=== PATIENT | female | born 2000 | race American Indian/Alaskan Native ===

== ENCOUNTER 2020-03-08 14:05 | Emergency (ER) | payer OTHER ==
[2020-03-08 14:32] VITALS: BP 107/98
--- NOTE | 2020-03-08 14:32 | Emergency Department Report ---
ED Lower Extremity HPI - General Stated Complaint: RT ANKLE INJURY Time Seen by Provider: 03/08/20 14:27 - History of Present Illness Initial Comments: Patient is a 19-year-old female who presents emergency room with complaints of a right ankle/foot injury that occurred just prior to arrival. Patient states that she was inside the house and missed the last step and states that she rolled her ankle. She is having associated right ankle and foot pain. She has been ambulatory since the incident but states that she has pain when she ambulates. She denies any numbness or weakness. She denies ever injuring in the past. No past medical history. No allergies to medications. Last menstrual cycle 02/24/2020. - Related Data Previous Rx's Medication Instructions Recorded Last Taken Type Naproxen [EC-Naproxen] 500 mg PO BID PRN #14 tablet. 03/08/20 Unknown Rx Allergies Allergy/AdvReac Type Severity Reaction Status Date / Time No Known Allergies Allergy Unverified 03/08/20 14:32 ED Review of Systems ROS: Stated complaint: RT ANKLE INJURY Other details as noted in HPI Comment: All other systems reviewed and negative ED Past Medical Hx - Medications Home Medications: Home Medications Medication Instructions Recorded Confirmed Last Taken Type Naproxen [EC-Naproxen] 500 mg PO BID PRN #14 tablet. 03/08/20 Unknown Rx ED Physical Exam - General General appearance: alert, in no apparent distress - Head Head exam: Present: atraumatic, normocephalic - Eye Eye exam: Present: normal appearance - ENT ENT exam: Present: mucous membranes moist - Respiratory Respiratory exam: Absent: respiratory distress, accessory muscle use - Extremities Exam Extremities exam: Present: other (ttp and edema present to the right lateral malleolus, FROM of the right ankle, foot, and toes, pain with flexion and external rotation of the right ankle, neurovascularly intact) - Neurological Exam Neurological exam: Present: alert, oriented X3 - Psychiatric Psychiatric exam: Present: normal affect, normal mood - Skin Skin exam: Present: warm, dry, intact ED Course Vital Signs 03/08/20 14:28 Temperature 97.9 F Pulse Rate 107 H Respiratory 18 Rate Blood Pressure 107/98 O2 Sat by Pulse 98 Oximetry ED Lower Extremity MDM - Radiology Data Radiology results: report reviewed Ordering Physician: ALISSON ROBERTS Date of Service: 03/08/20 Procedure(s): XR ankle 3+V RT Accession Number(s): [id number] cc: ALISSON ROBERTS Fluoro Time In Minutes: XR foot 3+V RT, XR ankle 3+V RT INDICATION / CLINICAL INFORMATION: right ankle/foot pain after fall down steps. COMPARISON: None available. FINDINGS: No acute fracture or malalignment in the left foot or ankle. There is soft tissue swelling about the ankle IMPRESSION: Soft tissue swelling about the ankle. No acute osseous findings of the ankle or foot. Signer Name: Kiran Danielle MD Signed: 03/08/2020 3:11 PM Workstation Name: [id number] Transcribed By: PEMA Dictated By: KIRAN GARCÍA MD Electronically Authenticated By: KIRAN GARCÍA MD Signed Date/Time: 03/08/201510 DD/ 09 TD/TT: Ordering Physician: ALISSON ROBERTS Date of Service: 03/08/20 Procedure(s): XR foot 3+V RT Accession Number(s): [id number] cc: ALISSON ROBERTS Fluoro Time In Minutes: XR foot 3+V RT, XR ankle 3+V RT INDICATION / CLINICAL INFORMATION: right ankle/foot pain after fall down steps. COMPARISON: None available. FINDINGS: No acute fracture or malalignment in the left foot or ankle. There is soft tissue swelling about the ankle IMPRESSION: Soft tissue swelling about the ankle. No acute osseous findings of the ankle or foot. Signer Name: Kiran Danielle MD Signed: 03/08/2020 3:11 PM Workstation Name: [id number] Transcribed By: PEMA Dictated By: KIRAN GARCÍA MD Electronically Authenticated By: KIRAN GARCÍA MD Signed Date/Time: 03/08/201510 DD/ 09 TD/TT: - Medical Decision Making Patient is a 19-year-old female who presents emergency room with complaints of a right ankle/foot injury that occurred just prior to arrival. Patient states that she was inside the house and missed the last step and states that she rolled her ankle. She is having associated right ankle and foot pain. She has been ambulatory since the incident but states that she has pain when she ambulates. She denies any numbness or weakness. She denies ever injuring in the past. No past medical history. No allergies to medications. Last menstrual cycle 02/24/2020. VSS. on exam: ttp and edema present to the right lateral malleolus, FROM of the right ankle, foot, and toes, pain with flexion and external rotation of the right ankle, neurovascularly intact. XR right ankle/foot:Soft tissue swelling about the ankle. No acute osseous findings of the ankle or foot. Discussed all results with patient and answered questions. Patient placed in ankle stirrup splint and given crutches by orthopedic coder and remained neurovascularly intact. Patient given prescription for naproxen. Advised patient Please take medication as prescribed as needed. May use ice for 15 minutes at a time, rest, elevation of the leg. Follow-up with orthopedic doctor. Please do not bear weight until you follow-up with orthopedic doctor. Return to emergency room for any new or worsening symptoms - Differential Diagnosis Strain, sprain, fracture, dislocation, tendinitis, contusion Critical care attestation.: If time is entered above; I have spent that time in minutes in the direct care of this critically ill patient, excluding procedure time. ED Disposition Clinical Impression: Right ankle sprain Qualifiers: Encounter type: initial encounter Involved ligament of ankle: unspecified l igament Qualified Code(s): S93.401A - Sprain of unspecified ligament of right ankle, initial encounter Disposition: TO HOME OR SELFCARE Is pt being admited?: No Does the pt Need Aspirin: No Condition: Stable Instructions: Ankle Sprain, [id number] Additional Instructions: Please take medication as prescribed as needed. May use ice for 15 minutes at a time, rest, elevation of the leg. Follow-up with orthopedic doctor. Please do not bear weight until you follow-up with orthopedic doctor. Return to emergency room for any new or worsening symptoms Prescriptions: Naproxen [EC-Naproxen] 500 mg PO BID PRN #14 tablet.dr FARR Reason: pain Referrals: [facility] [Provider Group] - 2-3 Days JEREMY BENJAMIN MD [Staff Physician] - 2-3 Days [facility]I [Other] - 2-3 Days Time of Disposition: 15:30 Print Language: MALDIVIAN
--- NOTE | 2020-03-08 15:16 | XRay Report ---
XR foot 3+V RT, XR ankle 3+V RT INDICATION / CLINICAL INFORMATION: right ankle/foot pain after fall down steps. COMPARISON: None available. FINDINGS: No acute fracture or malalignment in the left foot or ankle. There is soft tissue swelling about the ankle IMPRESSION: Soft tissue swelling about the ankle. No acute osseous findings of the ankle or foot. Signer Name: Ulisses Danielle MD Signed: 03/08/2020 3:11 PM Workstation Name: [id number]
== END 2020-03-08 16:26 | disposition home or self-care (01) ==
LOC: ED 14:05
DX: S93.401A Sprain of unspecified ligament of right ankle, initial encounter (principal); Z79.899 Other long term (current) drug therapy; W10.9XXA Fall (on) (from) unspecified stairs and steps, initial encounter; Y93.89 Activity, other specified; Y92.89 Other specified places as the place of occurrence of the external cause; Y99.8 Other external cause status